=== PATIENT | female | born 1995 | race Caucasian/White ===

== ENCOUNTER 2019-04-20 12:02 | Emergency (ER) | payer OTHER ==
[2019-04-20 12:10] VITALS: BP 130/66
--- NOTE | 2019-04-20 12:15 | ED Physician Documentation ---
PD HPI SKIN - Stated complaint Stated Complaint: FEMALE - Chief complaint Chief Complaint: Wound - History obtained from History obtained from: Patient - History of Present Illness Timing - onset: Other (2 weeks of painful lesions in her groin, she was seen in the [employer] [place] and had reportedly including HIV Chlamydia gonorrhea herpes syphilis HPV and all were negative. No other lesions. No history of similar.) Review of Systems Constitutional: denies: Fever, Chills Cardiac: denies: Chest pain / pressure, Palpitations Respiratory: denies: Dyspnea, Cough GI: denies: Abdominal Pain, Nausea, Vomiting PD PAST MEDICAL HISTORY - Present Medications Home Medications: Ambulatory Orders Medication Instructions Recorded Confirmed Clindamycin HCl [Clindamycin 300MG 300 mg PO Q6H #28 capsule 04/20/19 CAP] - Allergies Allergies/Adverse Reactions: Allergies Allergy/AdvReac Type Severity Reaction Status Date / Time No Known Drug Allergies Allergy Verified 04/20/19 12:05 PD ED PE NORMAL - Vitals Vital signs reviewed: Yes - General General: Alert and oriented X 3, No acute distress - Female Female : [employer] present (Kiana Resendiz RN), Other (She has mild case of folliculitis on both vulva, nothing to culture.) - Neuro Neuro: Alert and oriented X 3, Normal speech Results - Vitals Vitals: Vital Signs - 24 hr 04/20/19 12:05 Temperature 36.5 C Heart Rate 75 Respiratory 14 Rate Blood Pressure 130/66 O2 Saturation 100 Oxygen O2 Source Room air Departure - Departure Disposition: 01 Home, Self Care Clinical Impression: Folliculitis Condition: Good Record reviewed to determine appropriate education?: Yes Instructions: ED Folliculitis Prescriptions: Clindamycin HCl [Clindamycin 300MG CAP] 300 mg PO Q6H #28 capsule Comments: Call your doctor to arrange a follow-up appointment, make the next available appointment. In the interim, return anytime if worse or if new symptoms develop.
== END 2019-04-20 12:24 | disposition home or self-care (01) ==
LOC: ED 12:02
DX: L73.9 Follicular disorder, unspecified (principal)
CPT/HCPCS: 99282; 99283